=== PATIENT | male | born 1975 | race Caucasian/White ===

== ENCOUNTER 2025-06-04 07:04 | Emergency (ER) | payer BC, SELFPAY ==
[2025-06-04 07:06] VITALS: BP 104/64
--- NOTE | 2025-06-04 07:45 | ED.MUSCINJ ---
HPI-Injury
General
Chief Complaint: Fall
Source: patient
Exam Limitations: none
Time Seen by Provider: 06/04/25 07:19
History of Present Illness-Injury
Initial Injury comments:
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 He fell down 2 concrete steps. He states it was dark and there is no handrail and he was dizzy. He landed on his buttock. He notes pain in the
lower back. He has a known history of compression fracture in the lumbar spine that he sustained in March of this year after a separate fall. He tried baclofen hydroxyzine and BuSpar this morning without relief of his back pain. He denies any bowel
or bladder dysfunction. He denies any numbness. No fevers. No other complaints
Phy Exam
Physical Exam
Physical Exam:
General: Well-appearing male no acute respiratory distress
HEENT: Normocephalic atraumatic heart: Regular rate and rhythm
Lungs: Clear no wheeze
Abdomen is soft nontender nondistended
Extremities: No cyanosis
Musculoskeletal exam: Patient is tender over the lower lumbar spine over the midline
Neurologic exam: Good sensation and strength to the lower extremities
Injury Course
Orders/Labs/Results
Orders:
Orders
06/04/25 07:06
Electrocardiogram (*1) Stat
Reason for Study: Other
Other Reason for Exam: fell
06/04/25 07:07
EKG- Treatment ONCE
06/04/25 07:35
Orthostatic VS- Treatment ONCE
CR Lumbar Spine 2 Or 3 Views Urgent
Comment:
Reason For Exam: fall, pain
06/04/25 07:53
Complete Blood Count/With Diff Urgent
Comprehensive Metabolic Panel Urgent
Abnormal Lab Results
06/04/25
07:53
WBC 3.0 L 10^3/uL
(4.8-10.8)
RBC 3.52 L 10^6/uL
(4.70-6.10)
Hgb 11.3 L g/dL
(13.0-18.0)
Hct 32.8 L %
(39.0-52.0)
MCH 32.1 H pg
(27.0-31.0)
RDW 14.6 H %
(11.5-14.5)
Plt Count 73 L 10^3/uL
(130-400)
Absolute Lymphs (auto) 1.0 L 10^3/uL
(1.2-3.4)
Monocytes % 10.9 H %
(1.7-9.3)
Chloride 112 H mmol/L
(98-107)
Glucose 100 H mg/dl
(70-99)
Total Bilirubin 1.7 H mg/dl
(0.2-1.3)
AST 74 H U/L
(17-59)
06/04/25 07:53
06/04/25 07:53
MDM/Problems Addressed
Differential Diagnosis Includes:
Patient with low back pain after a fall he sustained last evening. Also notes some dizziness. Reportedly, there was a left bundle branch block noted en route however this resolved. Currently he is normal sinus rhythm without a bundle branch block
on the monitor. Will check labs. X-rays lumbar spine pending.
*Pulse Oximetry
SaO2: 98
Oxygen Mode of Delivery: Room air
Patient hypoxic: no
*Critical Care Note
Total Time (30-74mins, 75-104mins- exclusive of procedures): Not Applicable
Update Note
Update Note:
X-rays confirm the presence of compression fracture of L1 and L2. No neurologic deficit. Labs reviewed slightly pancytopenic likely from chronic suppression from alcohol use. Will prescribe prednisone and a short supply of pain medicine. He will
follow-up. No indication for admission
ED Attending Note
-
Portions of this chart may have been created with voice recognition software.� Occasional wrong word or��sound alike� substitutions may have occurred due to the inherent limitations of voice recognition software.
Discharge Plan
Departure
Patient Disposition: Home (Routine Discharge)
Date of Disposition: 06/04/25
Time of Disposition: 09:51
Patient with high blood pressure during this ER visit?: No
Discharge Problem:
Compression fracture
Instructions: Vertebral compression fracture
Prescriptions:
New
prednisone 10 mg Tablet
See Rx Instructions .ROUTE .COMPLEX Qty: 30 0RF
Rx Instructions:
Take By Mouth:
40 mg daily x3 days, 30 mg daily x3 days,
20 mg daily x3 days, 10 mg daily x3 days.
hydrocodone-acetaminophen 5-325 mg tablet
1 tab PO Q8H PRN (Reason: Pain) Qty: 10 0RF
Referrals:
NONE,* [Family Provider, Internal Medicine]
Activity Restrictions/Additional Instructions:
Use medicine as directed. Continue with current medicine otherwise follow-up with your doctor. Return if
Interventions
Interventions:
*Risk Screen - Suicide Last Done: 06/04/25 07:08
*General Assessment Last Done: 06/04/25 07:08
*Neglect/Abuse Screening Last Done: 06/04/25 07:08
ED-Musculoskeletal Assessment Last Done: 06/04/25 07:36
ED- Neurological Assessment Last Done: 06/04/25 07:36
ED-Skin Assessment Last Done: 06/04/25 07:36
Discharge Date and Time
Print Language: TURKISH
[2025-06-04 08:15] VITALS: BP 124/74
[2025-06-04 08:15] LABS: Hematocrit 32.8 % (39.0-52.0); Hemoglobin 11.3 g/dL (13.0-18.0); Mean Corp Hgb Conc. 34.5 g/dL (33.0-37.0); Mean Corpuscular Volume 93.2 fL (80.0-94.0); Nucleated Red Blood Cells % 0 % (-); Red Cell Dist. Width 14.6 % (11.5-14.5)
[2025-06-04 08:18] VITALS: BP 114/77
[2025-06-04 08:19] VITALS: BP 106/71
[2025-06-04 08:20] LABS: ALT (SGPT) 37 U/L (0-50); AST (SGOT) 74 U/L (17-59); Albumin 3.7 g/dl (3.5-5.0); Alkaline Phosphatase 114 U/L (38-126); Blood Urea Nitrogen 13 mg/dl (9-20); Calcium 9.3 mg/dl (8.4-10.2); Carbon Dioxide 24 mmol/L (22-30); Chloride 112 mmol/L (98-107); Glucose 100 mg/dl (70-99); Potassium 3.7 mmol/L (3.5-5.1); Sodium 142 mmol/L (135-145); Total Protein 6.8 g/dl (6.3-8.2); eGFR > 60.00
[2025-06-04 08:30] VITALS: BP 106/71; BP 114/77; BP 124/74; PULSE 83; PULSE 88; PULSE 89
[2025-06-04 08:36] LABS: Platelet Count 73 10^3/uL (130-400)
[2025-06-04 09:41] VITALS: BP 128/82
== END 2025-06-04 11:18 | disposition home or self-care (01) ==
LOC: EMR 07:04
PROVIDERS: Physician Assistant; EMERGENCY PHYSICIAN Emergency Medicine
DX: R42 Dizziness and giddiness (principal); S32.019A Unspecified fracture of first lumbar vertebra, initial encounter for closed fracture; S32.029A Unspecified fracture of second lumbar vertebra, initial encounter for closed fracture; W10.9XXA Fall (on) (from) unspecified stairs and steps, initial encounter; I44.7 Left bundle-branch block, unspecified; F10.21 Alcohol dependence, in remission
CPT/HCPCS: 99283; 72100; 80053; 85025; 93005